=== PATIENT | female | born 1975 | race Two or more races ===

== ENCOUNTER → 2024-10-09 | Outpatient (CLI) | payer MEDICAID, SELFPAY ==
--- NOTE | 2024-10-09 08:43 | XR_ITS ---
Examination: Foot, right, 3 views Technique: AP, oblique, lateral views foot, 3 views Date and time of exam: 01/09/2025 0903 hours INDICATIONS: Right foot pain beginning one year ago. FINDINGS: Mild bunion deformity Early osteoarthritis first metatarsophalangeal joint No fracture or dislocation IMPRESSION: Mild bunion deformity Early osteoarthritis first metatarsophalangeal joint
--- NOTE | 2024-10-09 08:43 | XR_ITS ---
EXAMINATION: Ankle, right 3 views . Technique: Ankle AP, oblique, lateral 3 views Date and time of exam: October 09, 2024 0901 hours INDICATIONS: Right ankle pain beginning one year ago. FINDINGS: Moderate osteopenia Mild narrowing tibiotalar joint No fracture or dislocation IMPRESSION: Mild narrowing tibiotalar joint
== END | disposition home or self-care (01) ==
PROVIDERS: PCP Family Medicine; Referring Provider Family Medicine; Visit Provider Family Medicine
DX: M25.871 Other specified joint disorders, right ankle and foot (principal); M21.611 Bunion of right foot; M19.071 Primary osteoarthritis, right ankle and foot
CPT/HCPCS: 73610; 73630

== ENCOUNTER → 2025-01-31 | Outpatient (CLI) | payer MEDICAID, SELFPAY ==
--- NOTE | 2025-01-31 14:00 | XR_ITS ---
Examination: Breast ultrasound complete, bilateral Date and time of exam: January 31, 2025 1431 hours INDICATIONS: Palpable lump right breast note is beginning one week ago Technique: Real-time grayscale ultrasonographic imaging bilateral breasts, including all 4 quadrants as well as nipple retroareolar and axillary regions. Findings: Sonographic images right breast Multiple benign cysts, the largest in the 11:00 position 17 x 18 mm Sonographic images left breast Multiple benign cysts, the largest in the 7:00 position 11 x 11 mm No solid nodules IMPRESSION: BI-RADS Category 2: Benign findings
--- NOTE | 2025-01-31 15:00 | XR_ITS ---
Examination: Diagnostic digital mammography, bilateral Computer aided detection 3-D breast Tomosynthesis, bilateral Date and time of exam: January 31, 2025 1450 hours Compared to mammograms dating to November 15, 2015 INDICATIONS: Bilateral breast lumps one month, family history breast cancer Technique: Nonmagnified MLO, CC views of the breasts to been obtained, reconstructed from 3-D Tomosynthesis images. R2 computer aided detection program utilized for evaluation of suspicious masses and/or abnormal calcifications. 3-D Tomosynthesis images obtained. Findings: The breasts are heterogeneously dense, which may obscure small masses Circumscribed nodule 11:00 position right breast, 18 mm corresponding to benign cysts described on right breast sonogram today 7:00 nodule left breast, corresponding to 11 mm cyst described on left breast sonogram today Impression: BI-RADS Category 2: Benign findings Recommend yearly follow-up mammography.
== END | disposition home or self-care (01) ==
LOC: CDIM 14:04
DX: N64.4 Mastodynia (principal); N63.20 Unspecified lump in the left breast, unspecified quadrant; N63.10 Unspecified lump in the right breast, unspecified quadrant; R92.333 Mammographic heterogeneous density, bilateral breasts; N60.12 Diffuse cystic mastopathy of left breast; N60.11 Diffuse cystic mastopathy of right breast
CPT/HCPCS: 76641; 77062; 77066; G0279